=== PATIENT | male | born 1950 | race Caucasian/White ===

== ENCOUNTER 2016-11-27 17:58 | Emergency (ER) | payer MEDICARE, OTHER ==
[~2016-11-27] VITALS: Ht 170.2 cm; Wt 75.0 kg
[2016-11-27 18:02] VITALS: Ht 170.2 cm; Wt 75.0 kg
[2016-11-27] MEDS ORDERED: ASPIRIN 325 MG TAB PO STA (18:06)
--- NOTE | 2016-11-27 18:08 | ERA ---
ER Documentation Chief Complaint Date/Time DATE: 11/27/16 TIME: 18:08 Chief Complaint BIB RA FOR EVAL OF CP. ASA 81MG TAKEN TODAY. HPI 66-year-old man with a history of CAD status post CABG, peripheral arterial disease presents with chest pain times hours. Patient brought in for intermittent chest pain that is severe and sharp over the left side of his chest and radiating to his back. Chest pain can last seconds to maybe a minute or so appears to be very frequent and very intense. Pain is associated with shortness of breath when he has a chest pain only and mild diaphoresis. No nausea, vomiting, or lightheadedness. The pain is non- tearing or ripping. Pain occurred at rest and is nonexertional. Reports no pleuritic or positional components. Pain feels similar to prior MIs. Patient was given aspirin by EMS. No recent travel, no cough, no fevers or chills. He is currently chest pain-free in the ER. ROS All systems reviewed and are negative except as per history of present illness. Allergies Allergies: Coded Allergies: No Known Allergy (Unverified , 11/27/16) PMhx/Soc CAD status post CABG, peripheral arterial disease History of Surgery: Yes Anesthesia Reaction: No Hx Neurological Disorder: No Hx Respiratory Disorders: No Hx Cardiac Disorders: Yes Hx Psychiatric Problems: No Hx Miscellaneous Medical Probl: No Hx Alcohol Use: No Hx Substance Use: No Hx Tobacco Use: Yes Smoking Status: Former smoker FmHx Family History: coronary disease Physical Exam Vitals Vital Signs Date Time Temp Pulse Resp B/P Pulse Ox O2 Delivery O2 Flow Rate FiO2 11/27/16 22:21 98.9 65 16 123/61 98 Room Air 11/27/16 19:45 98.7 68 18 140/66 100 Nasal Cannula 2.0 11/27/16 18:20 Nasal Cannula 2 11/27/16 18:02 98.4 81 18 159/71 100 Physical Exam General: alert, well appearing, and in no distress, AOx4. normal pulse oximetry. Head: Atraumatic, normocephalic Eyes: pupils equal and reactive, extraocular eye movements intact, sclera anicteric. Ears: bilateral TM's and external ear canals normal. Nose: normal and patent, no erythema, discharge or polyps. Oropharynx: moist mucous membranes, pharynx normal without lesions. Neck: supple, no significant adenopathy. Heart: normal rate, regular rhythm, normal S1, S2, no murmurs, rubs, clicks or gallops. Peripheral pulses: normal Lungs: clear to auscultation, no wheezes, rales or rhonchi, symmetric air entry and normal work of breathing. Abdomen: soft, nontender, nondistended, no masses or organomegaly Extremities: no joint tenderness, deformity or swelling. Skin: normal coloration and turgor, no rashes, no suspicious skin lesions noted. Neurologic: Alert, moving all extremities symmetrically x 4, sensation grossly intact, no gross deficits Result Diagram: 11/27/16184911/27/161849 Results 24 hrs Laboratory Tests Test 11/27/16 18:50 11/27/16 21:10 Activated Partial Thromboplast Time 26.2Sec Anion Gap 17 Basophils # 0.010^3/ul Basophils % 0.7% Blood Morphology Comment Blood Urea Nitrogen 15mg/dl Calcium Level 9.1mg/dl Carbon Dioxide Level 29mmol/L Chloride Level 104mmol/L Creatinine 0.65mg/dl Eosinophils # 0.210^3/ul Eosinophils % 3.3% Glucose Level 127mg/dl Hematocrit 37.8% Hemoglobin 12.4g/dl INR International Normalized Ratio 0.94 Lymphocytes # 2.410^3/ul Lymphocytes % 37.8% Mean Corpuscular Hemoglobin 28.0pg Mean Corpuscular Hemoglobin Concent 32.9g/dl Mean Corpuscular Volume 85.0fl Mean Platelet Volume 7.6fl Monocytes # 0.610^3/ul Monocytes % 9.6% Neutrophils # 3.110^3/ul Neutrophils % 48.6% Nucleated Red Blood Cells # 0.010^3/ul Nucleated Red Blood Cells % 0.0/100WBC Platelet Count 81119^3/UL Potassium Level 4.2mmol/L Prothrombin Time 12.6Sec Prothrombin Time Ratio 1.0 Red Blood Count 4.4510^6/ul Red Cell Distribution Width 15.7% Sodium Level 146mmol/L Troponin I < 0.010ng/ml < 0.012ng/ml White Blood Count 6.510^3/ul Current Medications Medications (Trade) Dose Ordered Sig/[place] Route PRN Reason Start Time Stop Time Status Last Admin Dose Admin Aspirin (Aspirin) 325 mg ONCE STAT PO 11/27/16 18:06 11/27/16 18:08 DC 11/27/16 19:33 Nitroglycerin (Nitroglycerin (Sl Tab) 0.4 Mg) 1 tab Q5M UP TO 3 DOSES PRN SL CHEST PAIN 11/27/16 18:30 11/27/16 22:25 DC Procedures/MDM EKG, MONITORS, & DIAGNOSTIC IMAGING: EKG is normal sinus rhythm at [address] elevation, T-wave inversions and leads V1 and V2. T-wave inversion in aVL. ST flattening in lead I. No ST depressions. Normal axis, normal intervals. Nondiagnostic EKG. CXR: IMPRESSION: 1. Status post CABG. 2. Otherwise normal chest radiograph. LAB INTERPRETATION: Labs unremarkable, serial troponins negative. MEDICAL DECISION MAKIN-year-old man with a history of CAD status post CABG, peripheral arterial disease presents with chest pain times hours of unclear etiology but given his past medical history is high risk for acute coronary syndrome. Patient's EKG showing no signs of a STEMI, chest x-ray unremarkable. He is now chest pain- free and was given aspirin. Afebrile mildly hypertensive otherwise unremarkable vital signs. Low suspicion for aortic dissection given normal mediastinum and normal symmetric pulses throughout. Doubt PE as he is low risk by [place] score and is not tachycardic, tachypneic, or hypoxic. Patient with high risk chest pain for ACS by heart score, but given that his chest pain is pinpoint, sharp, and lasting seconds to at most 1 minute, it is unlikely to represent ACS. He had negative serial ECGs and troponins over a 2 hour period. Spoke with his clinical asst on-call Dr. Stewart and agreed with plan for serial troponins in ER and dc with clinic f/u on Mon or . Patient reports pain radiating to the back, but has normal mediastinum per CXR read, normal symmetric pulses throughout, the pain is non-tearing and non-ripping. He appears comfortable and is only mildly hypertensive. Again, pain only lasts for seconds and is unlikely to represent aortic dissection. Discharged with strict ER return precautions. Departure Diagnosis: Primary Impression: Chest pain Qualified Code: R07.9 - Chest pain, unspecified type Condition: RUTHIE Tate MD Nov 27, 2016 18:08
--- NOTE | 2016-11-27 18:29 | RADRPT ---
PROCEDURE: XR Chest. CLINICAL INDICATION: Chest pain. TECHNIQUE: Single frontal view. COMPARISON: None. FINDINGS: The lungs are clear. The heart size is normal. There are sternal wires and mediastinal clips. There is no pleural effusion. There is no pneumothorax. IMPRESSION: 1. Status post CABG. 2. Otherwise normal chest radiograph. RPTAT: QQ .Ashish Storm MD, MD Date Time Electronically viewed and signed by .Ashish Storm MD, MD on 11/27/2016 18:28 .R/
[2016-11-27] MEDS ORDERED: NITROGLYCERIN (SL) 0.4 MG TAB SL PRN (18:30)
[2016-11-27 19:05] LABS: BASOPHILS % 0.7 % (0.0-2.0); EOSINOPHILS # 0.2 10^3/ul (0.0-0.5); EOSINOPHILS % 3.3 % (0.0-7.0); HEMATOCRIT 37.8 % (42.0-52.0); HEMOGLOBIN 12.4 g/dl (14.0-18.0); LYMPHOCYTES # 2.4 10^3/ul (0.8-2.9); LYMPHOCYTES % 37.8 % (15.0-51.0); MEAN CORPUSCULAR HGB CONC 32.9 g/dl (32.0-37.0); MEAN PLATELET VOLUME 7.6 fl (7.4-10.4); MONOCYTE # 0.6 10^3/ul (0.3-0.9); MONOCYTES % 9.6 % (0.0-11.0); NEUTROPHIL # 3.1 10^3/ul (1.6-7.5); NEUTROPHILS % 48.6 % (39.0-77.0); PLATELET COUNT 251 10^3/UL (140-440); RED BLOOD COUNT 4.45 10^6/ul (4.70-6.10); RED CELL DISTRIBUTION WIDTH 15.7 % (11.5-14.5); UNCORRECTED WBC 6.5 10^3/ul (4.8-10.8); WHITE BLOOD COUNT 6.5 10^3/ul (4.8-10.8)
[2016-11-27 19:06] LABS: CONDITION 1; LH ANALYZER COMMENTS 1
[2016-11-27 19:16] LABS: CHLORIDE 104 mmol/L (97-110); INR 0.94; POTASSIUM 4.2 mmol/L (3.5-5.1); PROTIME 12.6 Sec (12.2-14.2); SODIUM 146 mmol/L (135-144)
[2016-11-27 19:17] LABS: PARTIAL THROMBOPLASTIN TIME 26.2 Sec (25.0-35.0)
[2016-11-27 19:19] LABS: ANION GAP 17 (8-16); BLOOD UREA NITROGEN 15 mg/dl (7-20); CARBON DIOXIDE 29 mmol/L (21-31); CREATININE 0.65 mg/dl (0.61-1.24); GLUCOSE 127 mg/dl (70-220)
[2016-11-27 19:20] LABS: CALCIUM 9.1 mg/dl (8.4-10.2)
[2016-11-27 19:32] LABS: TROPONIN-I < 0.010 ng/ml (0.00-0.12)
[2016-11-27 22:21] VITALS: BP 123/61; PULSE 65; RESP 16; TEMP 98.9
== END 2016-11-27 22:24 | disposition home or self-care (01) ==
LOC: E/R 17:58
DX: R07.9 Chest pain, unspecified (principal); R40.2252 Coma scale, best verbal response, oriented, at arrival to emergency department; I25.10 Atherosclerotic heart disease of native coronary artery without angina pectoris; R40.2362 Coma scale, best motor response, obeys commands, at arrival to emergency department; R40.2142 Coma scale, eyes open, spontaneous, at arrival to emergency department; Z87.891 Personal history of nicotine dependence; Z95.1 Presence of aortocoronary bypass graft
CPT/HCPCS: 71010; 80048; 84484; 85025; 85610; 85730; 93005